=== PATIENT | male | born 1965 | race Hispanic/Latino ===

== ENCOUNTER 2019-02-20 01:28 | Emergency (ER) | payer SELFPAY ==
[~2019-02-20] VITALS: Ht 157.5 cm; Wt 86.2 kg
[2019-02-20] MEDS ORDERED: OMEPRAZOLE20 MG PO (01:46)
[2019-02-20] MEDS ORDERED: PENICILLIN V P500 MG PO (01:47)
[2019-02-20] MEDS ORDERED: LISINOPRIL20 MG PO (01:47)
--- NOTE | 2019-02-20 12:35 | EKG ---
[facility] [address] [facility] [place], [place] [address] Signed Normal sinus rhythm Nonspecific ST and T wave abnormality Abnormal ECG No previous ECGs available Confirmed by ANDREI RUSHING MD ([id number]) on 02/20/2019 12:34:58 PM Electronically Signed By: ANDREI RUSHING MD 02/20/19 1235 PATIENT NAME: ENMA DEAN Electrocardiogram DATE OF : 69 PHYSICIAN: ANDREI RUSHING MD REPORT #: [id number] REPORT IS CONFIDENTIAL AND NOT TO BE RELEASED WITHOUT AUTHORIZATION
== END 2019-02-20 02:55 | disposition home or self-care (01) ==
LOC: ED 01:28
DX: K21.9 Gastro-esophageal reflux disease without esophagitis (principal); R07.89 Other chest pain; E11.9 Type 2 diabetes mellitus without complications; F17.200 Nicotine dependence, unspecified, uncomplicated; Z79.899 Other long term (current) drug therapy
CPT/HCPCS: 71045; 80053; 83735; 84484; 85025; 93005; 93010; 99285-25

== ENCOUNTER 2019-12-15 19:06 | Emergency (ER) | payer BC ==
[~2019-12-15] VITALS: Ht 157.5 cm; Wt 83.9 kg
[~2019-12-15 19:06] MED LIST: LISINOPRIL20 MG PO; OMEPRAZOLE20 MG PO; PENICILLIN V P500 MG PO
[2019-12-15] MEDS ORDERED: VITAMIN B COMP1 EACH PO (19:18)
--- NOTE | 2019-12-16 19:07 | EKG ---
[facility] [address] [facility] [place] [address] Signed Normal sinus rhythm T wave abnormality, consider anterior ischemia Prolonged QT Abnormal ECG When compared with ECG of 20-FEB-2019 01:32, No significant change was found Confirmed by AZEB MENA MD ([id number]) on 12/16/2019 7:06:51 PM Electronically Signed By: AZEB MENA MD 12/16/19 1907 PATIENT NAME: ENMA DEAN Electrocardiogram DATE OF : 69 PHYSICIAN: AZEB MENA MD REPORT #: [id number] REPORT IS CONFIDENTIAL AND NOT TO BE RELEASED WITHOUT AUTHORIZATION
== END 2019-12-15 20:39 | disposition home or self-care (01) ==
LOC: ED 19:06
DX: R00.2 Palpitations (principal); E11.9 Type 2 diabetes mellitus without complications; I10 Essential (primary) hypertension; F17.200 Nicotine dependence, unspecified, uncomplicated; Z79.899 Other long term (current) drug therapy
CPT/HCPCS: 80053; 84443; 84484; 85025; 93005; 93010; 99285-25; J7030

== ENCOUNTER 2020-09-03 05:11 | Emergency (ER) | payer OTHER ==
[~2020-09-03] VITALS: Ht 157.5 cm; Wt 83.9 kg
[~2020-09-03 05:11] MED LIST changes: +VITAMIN B COMP1 EACH PO
[2020-09-03] MEDS ORDERED: HYDROCODON-ACE1 EA10 PO (05:47)
== END 2020-09-03 05:53 | disposition home or self-care (01) ==
LOC: ED 05:11
DX: M70.71 Other bursitis of hip, right hip (principal); E11.9 Type 2 diabetes mellitus without complications; I10 Essential (primary) hypertension; F17.200 Nicotine dependence, unspecified, uncomplicated; Z79.899 Other long term (current) drug therapy
CPT/HCPCS: 99283

== ENCOUNTER 2021-11-02 19:07 | Emergency (ER) | payer SELFPAY ==
[~2021-11-02] VITALS: Ht 157.5 cm; Wt 80.7 kg
[~2021-11-02 19:07] MED LIST changes: +HYDROCODON-ACE1 EA10 PO
[2021-11-02] MEDS ORDERED: ATIVAN0.5 MG PO (21:05)
--- NOTE | 2021-11-04 14:50 | EKG ---
[facility] [address] [facility] [place], [place] [address] Signed Normal sinus rhythm Nonspecific ST abnormality Abnormal ECG When compared with ECG of 02-MAY-2020 17:40, No significant change was found Confirmed by ANDREI RUSHING MD ([id number]) on 11/04/2021 2:49:59 PM Electronically Signed By: ANDREI RUSHING MD 11/04/21 1450 PATIENT NAME: ENMA DEAN Electrocardiogram DATE OF : 69 PHYSICIAN: ANDREI RUSHING MD REPORT #: [id number] REPORT IS CONFIDENTIAL AND NOT TO BE RELEASED WITHOUT AUTHORIZATION
== END 2021-11-02 21:15 | disposition home or self-care (01) ==
LOC: ED 19:07
DX: F41.9 Anxiety disorder, unspecified (principal); E11.9 Type 2 diabetes mellitus without complications; I10 Essential (primary) hypertension; F17.200 Nicotine dependence, unspecified, uncomplicated; Z79.899 Other long term (current) drug therapy
CPT/HCPCS: 36415; 71045; 80053; 84443; 84484; 85025; 85379; 93005; 93010; 96374; 99285-25; J2060

== ENCOUNTER 2021-12-12 10:08 | Emergency (ER) | payer BC ==
[~2021-12-12] VITALS: Ht 157.5 cm; Wt 80.7 kg
--- NOTE | ~2021-12-12 | EKG ---
[facility] [address] [facility] [place], [place] [address] Draft EK completed, results pending confirmation PATIENT NAME: ENMA DEAN Electrocardiogram DATE OF : 69 PHYSICIAN: PRELIMINARY REPORT #: [id number] REPORT IS CONFIDENTIAL AND NOT TO BE RELEASED WITHOUT AUTHORIZATION
[~2021-12-12 10:08] MED LIST changes: +ATIVAN0.5 MG PO
--- OUTSIDE RECORDS SUMMARY | 2021-12-12 10:10 | XMS ---
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 [facility] VISIT COUNT (12 MO.) 3 [facility] TOTAL 3 NOTE: Visits indicate total known visits. 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
[2021-12-12] MEDS ORDERED: PROZAC10 MG PO (10:19)
[2021-12-12] MEDS ORDERED: NAPROSYN500 MG PO (12:49)
== END 2021-12-12 13:00 | disposition home or self-care (01) ==
LOC: ED 10:08
DX: R07.89 Other chest pain (principal); F41.9 Anxiety disorder, unspecified; E11.9 Type 2 diabetes mellitus without complications; I10 Essential (primary) hypertension; Z79.899 Other long term (current) drug therapy; F17.210 Nicotine dependence, cigarettes, uncomplicated
CPT/HCPCS: 36415; 71045; 84484; 85379; 93005; 93010; 99406; A9270-GY; J1885